=== PATIENT | female | born 1960 | race Caucasian/White ===

== ENCOUNTER 2017-05-01 00:24 | Inpatient (IN) | payer OTHER, SELFPAY ==
[2017-05-01] MEDS ORDERED: Naloxone HCl 2 mg/2 ml Syringe ONE (00:36)
[2017-05-01 00:58] LABS: #Lymphocytes 2.1 thou/uL (1.20-3.40); #Monocytes 0.4 thou/uL (0.11-0.59); #Neutrophils 3.2 thou/uL (1.40-6.50); %Basophils 0.8 % (0.0-1.0); %Eosinophils 0.8 % (0.0-10.0); %Monocytes 6.8 % (0.0-10.0); %Neutrophils 55.5 % (42.0-75.0); Hemoglobin 9.1 g/dL (12.0-16.0); Mean Corpuscular Hemoglobin 27.6 pg (27.0-31.0); Mean Corpuscular Volume 86.3 fl (81.0-99.0); Platelet Count 309 thou/uL (130-400); RBC Distribution Width 13.5 % (11.5-14.5); Red Blood Cell (RBC) Count 3.29 mill/uL (4.20-5.40); White Blood Cell (WBC) Count 5.8 thou/uL (4.8-10.8)
[2017-05-01] MEDS ORDERED: diphenhydrAMINE 50 MG/ML VIAL ONE (01:01)
[2017-05-01] MEDS ORDERED: methylPREDNISolone Sod Succ/PF 125 MG/2 ML VIAL ONE (01:01)
[2017-05-01] MEDS ORDERED: Famotidine/PF 20 mg/2ml Vial ONE (01:01)
[2017-05-01 01:12] LABS: ALT (SGPT) 14 U/L (8-55); AST (SGOT) 22 U/L (5-34); Acetaminophen Less than 6.0 mcg/mL (10.0-30.0); Albumin 3.1 g/dL (3.5-5.0); Alcohol Less than 10 mg/dL (Less than 10); Alkaline Phosphatase 105 U/L (40-150); Anion Gap 10 mmol/L (10-20); BUN (Urea Nitrogen) 13 mg/dL (9.8-20.1); Bilirubin, Total 0.4 mg/dL (0.2-1.2); CK (CPK) 295 U/L (29-168); Calc. Creatinine Clearance 0 mL/min (70-130); Calcium 8.4 mg/dL (7.8-10.44); Carbon Dioxide 28 mmol/L (22-29); Chloride 104 mmol/L (98-107); Estimated GFR-MDRD 88; Glucose 80 mg/dL (70-105); Potassium 3.9 mmol/L (3.5-5.1); Protein, Total 5.1 g/dL (6.0-8.3); Salicylate Less than 8.0 mg/dL (15.0-30.0); Sodium 138 mmol/L (136-145)
[2017-05-01 01:15] LABS: CKMB 6.2 ng/mL (0-6.6); Troponin I Less than 0.010 ng/mL (< 0.028)
[2017-05-01 01:47] LABS: Bilirubin Small (Negative); Blood, Urine Negative (Negative); Clarity CLEAR (Clear); Glucose, Urine (Dipstick) Negative (Negative); Leukocyte Trace (Negative); Nitrite Negative (Negative); Protein, Urine (Dipstick) Negative (Neg-Trace); Specific Gravity, Urine 1.017 (1.002-1.036); pH, Urine 6.5 (5.0-9.0)
[2017-05-01 01:48] LABS: Bacteria/HPF None Seen HPF (None Seen); Hyaline Casts/LPF 0-3 HYALINE CAST LPF (0-3 Hyaline); RBC/HPF 0-3 HPF (0-3); Squamous Epithelial 0-3 HPF (0-3); WBC/HPF 0-3 HPF (0-3)
[2017-05-01 02:01] LABS: Amphetamine Not Detected (NotDetected); Barbiturates Screen Not Detected (NotDetected); Benzodiazepine Screen Not Detected (NotDetected); Cocaine Metabolite Screen Not Detected (NotDetected); Medtox Control Line Valid? VALID (VALID); Medtox Reader # READER 4; Methadone Not Detected (NotDetected); Methamphetamine Not Detected (NotDetected); Opiate Screen Not Detected (NotDetected); Oxycodone Screen Not Detected (NotDetected); Phencyclidine (PCP) Not Detected (NotDetected); THC/Cannabinoid Screen Not Detected (NotDetected); Tricyclic Screen Detected (NotDetected)
[2017-05-01 04:48] VITALS: BMI 21.2
[2017-05-01] MEDS ORDERED: Sodium Chloride 0.9% 1,000 ML IV SCH (05:00)
[2017-05-01 07:52] VITALS: BP 90/51; TEMP 98.3
--- NOTE | 2017-05-01 08:23 | CT ---
PRELIMINARY REPORT/[facility]/EMERGENCY AFTER HOURS PROCEDURE: EXAM: CT Head Without Intravenous Contrast EXAM DATE/TIME: 05/01/2017 1:52 AM CLINICAL HISTORY: 56 years old, female; Signs and symptoms; Coma or unconsciousness; Patient HX: Additional history obt ained from ems, 56 y/o f with presentation of possible od. Ems reports that they were called by a fri end for a "woman with no stomach". Friend reported that she talked to the pt x30 minutes prior to ems arrival. Pt was unresponsive upon ems arrival and upon arousal pt admitted to taking benadryl, amoun t ingested unknown. O2 96%ra and became 100% 2l. BP 86/48, dstick 91. TECHNIQUE: Axial computed tomography images of the head/brain without intravenous contrast. All CT scans at this facility use one or more dose reduction techniques, viz.: automated exposure control; ma/kV adjustme nt per patient size (including targeted exams where dose is matched to indication; i.e. head); or ite rative reconstruction technique. COMPARISON: No relevant prior studies available. FINDINGS: Brain: No evidence of acute intracranial hemorrhage, extraxial fluid or midline shift. No evidence of acute large vessel infarction. Ventricles: Unremarkable. No ventriculomegaly. Bones/joints: Unremarkable. No acute fracture. Soft tissues: Unremarkable. Sinuses: Unremarkable as visualized. No acute sinusitis. Mastoid air cells: Unremarkable as visualized. No mastoid effusion. IMPRESSION: 1. No evidence of acute intracranial hemorrhage, extraxial fluid or midline shift. 2. No evidence of acute large vessel infarction. Thank you for allowing us to participate in the care of your patient. Dictated and Authenticated by: Chance Beckham MD 05/01/2017 2:59 AM Central Time ([place] & [place]) FINAL REPORT BRAIN CT WITHOUT IV CONTRAST: EMERGENCY AFTER HOURS EXAM TIME: 1:53 a.m. DATE: 05/01/17. COMPARISON: 10/20/15. No significant acute process. No mass or bleed. Stable from prior study. POS: [facility]
--- NOTE | 2017-05-01 08:26 | CT ---
PRELIMINARY REPORT/[facility]/EMERGENCY AFTER HOURS PROCEDURE: EXAM: CT Abdomen and Pelvis With Intravenous Contrast EXAM DATE/TIME: 05/01/2017 1:59 AM CLINICAL HISTORY: 56 years old, female; Signs and symptoms; Nausea and vomiting; Patient HX: Additional history obtaine d from ems, 56 y/o f with presentation of possible od. Ems reports that they were called by a friend for a "woman with no stomach". Friend reported that she talked to the pt x30 minutes prior to ems arr ival. Pt was unresponsive upon ems arrival and upon arousal pt admitted to taking benadryl, amount in gested unknown. O2 96%ra and became 100% 2l. BP 86/48, dstick 91. TECHNIQUE: Axial computed tomography images of the abdomen and pelvis with intravenous contrast. All CT scans at this facility use one or more dose reduction techniques, viz.: automated exposure control; ma/kV adjustment per patient size (including targeted exams where dose is matched to indication; i.e. head); or iterative reconstruction technique. Coronal reformatted images were created and reviewed. CONTRAST: 100 mL of ISOVUE 370 administered intravenously. COMPARISON: No relevant prior studies available. FINDINGS: Lower thorax: Moderate up to 10 mm distal esophageal wall thickening. Sutures at distal esophagus. Elmore rgical sutures are present along the stomach and proximal small bowel suggests prior gastric bypass s urgery with mild dilatation of the distal esophagus-gastroesophageal junction. ABDOMEN: Liver: Few hepatic cysts. Gallbladder and bile ducts: Gallbladder absent, surgical clips present in the fossa; prominence of th e central intrahepatic and extrahepatic common bile ducts, CBD 11 mm. Pancreas: Unremarkable. No mass. No ductal dilation. Spleen: Unremarkable. No splenomegaly. Adrenals: Unremarkable. No mass. Kidneys and ureters: Small 1 cm right renal cyst. No hydronephrosis. Stomach and bowel: Moderate-large amount retained stool material throughout areas nondilated colon. N o mucosal thickening. Appendix: No findings to suggest acute appendicitis. PELVIS: Bladder: Jackson catheter coiled within empty bladder. Reproductive: Uterus appears within normal limits. ABDOMEN and PELVIS: Intraperitoneal space: Unremarkable. No free air. No significant fluid collection. Bones/joints: Chronic degenerative changes of the lumbar spine. No acute fracture. No dislocation. Soft tissues: Unremarkable. Vasculature: Chronic atherosclerotic calcification of the vasculature. No abdominal aortic aneurysm. Lymph nodes: Unremarkable. No enlarged lymph nodes. IMPRESSION: 1. Moderate up to 10 mm distal esophageal wall thickening. --Possible mild esophagitis. 2. Cholecystectomy; prominence of the central intrahepatic and extrahepatic common bile ducts. Findi ngs can be seen in post-cholecystomy patients. Please correlate with patients liver function tests to exclude underlying biliary obstruction. 3. Moderate-large amount retained stool material throughout areas nondilated colon. Findings suggest some degree of constipation. Clinical correlation is recommended. Thank you for allowing us to participate in the care of your patient. Dictated and Authenticated by: Chance Beckham MD 05/01/2017 3:19 AM Central Time ([place] & [place]) FINAL REPORT ABDOMEN AND PELVIC CT SCAN WITH IV CONTRAST: EMERGENCY AFTER HOURS EXAM TIME: 2:05 a.m. DATE: 05/01/17. COMPARISON: 10/20/15. FINDINGS: Moderate to marked distal esophageal wall thickening with some associated hiatal hernia and postopera tive changes at the stomach, possibly prior bypass-type surgery. The amount of thickening of the eso phagus certainly has increased from the prior study. Status post cholecystectomy with marked ductal dilatation, both common bile duct and intrahepatic ductal dilatation. Stable liver cyst. Fairly ext ensive solid fecal material throughout the colon, evidence for constipation. No CT evidence for acut e appendicitis. No renal calculus or obstruction. Small right renal cyst. POS: [facility]
--- NOTE | 2017-05-01 08:36 | HP ---
CHIEF COMPLAINT: Unresponsiveness. HISTORY OF PRESENT ILLNESS: A 57-year-old female with a known history of short gut syndrome, pulmona ry embolus, who presents after being found unresponsive by her friend. It appears that just half an hour prior to this she was just conversing with the friend and was at her baseline mental status. At the time of my evaluation, the patient is arousable, but does not want to answer very many questions for me. In the emergency department, upon initial arrival, patient was found to have stable vital signs and G CS of 9. Per history obtained from the patient's friend at that point in time, it appears that the p atient had taken her regular home medications with the addition of Benadryl to help with sleeping. At the time of my evaluation, the patient is refusing to answer any questions and wishes to go back t o sleep. It appears that earlier she had told several nurses that she had taken her home medications of Benadryl and "I don't know why I'm here." REVIEW OF SYSTEMS: Unable to obtain secondary to the above. PAST MEDICAL HISTORY: 1. Gastric bypass, status post Mathew-en-Y. 2. Prior history of peritonitis and sepsis status post abdominal surgery. 3. Status post appendectomy. 4. Status post cholecystectomy. 5. 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 6. Status post G-tube placement and removal. 7. Status post bowel resection. HOME MEDICATIONS: Her home medication list is unable to be clarified with her. At this point in amie becerril, the list in the EMR appears to be from her prior discharge and then includes that she was still on Xarelto and does not include any updates. Attempts are being made to contact the patient's home pha rmacy to verify all of her medications at their current doses. ALLERGIES: IMIPRAMINE, IV DYE, and SULFA ANTIBIOTICS. PHYSICAL EXAMINATION: VITAL SIGNS: Temperature of 97.3, pulse of 78, respirations 16, satting 100% on 2 liters nasal cannu la, blood pressure of 119/76. GENERAL: Thin appearing lady who is in no acute distress, lying in the hospital bed. HEENT: Slightly dry mucous membranes. Equal ocular motions are intact. Normocephalic and atraumati c. CARDIOVASCULAR: S1, S2. Pulses 2+ bilateral upper extremities. No murmurs, rubs or gallops. No pi tting pedal edema. RESPIRATORY: Limited anterior examination secondary to patient's request, reasonable air movement ot herwise. No wheezes, rales or rhonchi otherwise. LUNGS: Clear to auscultation. ABDOMEN: Positive bowel sounds, soft, nontender to palpation. MUSCULOSKELETAL: Thin. Spontaneously moves all 4 extremities. ASSESSMENT AND PLAN: 1. A 56-year-old female presenting with a decreased mentation sensation secondary to Benadryl ingest ion. We will closely monitor as the patient appears to be arousable and with stable vital signs when she is stable. I suspect that perhaps the patient had taken more Benadryl and then she was able to tolerate. We will have to clarify with the patient when able. 2. History of gastric bypass and malnutrition. The patient had indicated to one of the techs that s he had not eaten in 6 days and had not had a bowel movement in 10 days. We will closely monitor her GI status as well. 3. Vaughn's thyroiditis. Check TSH. Continue patient on her home regimen once it is clarified. 4. Diet: N.p.o. with decreased mental status, but once her mental status resumes to baseline, resum e diet as tolerated by the patient. Activity; consult a walking program out of bed as tolerated, but at least to a chair. 5. Deep venous thrombosis prophylaxis. If the patient is not currently still on Xarelto, then we wi ll initiate deep venous thrombosis prophylaxis with subcutaneous Lovenox. The patient is presumed to be a FULL CODE as she is unable to maintain a conversation long enough to discuss code status. Thank you for asking me to care for the patient. Questions or concerns, please contact me at [facility].
[2017-05-01] MEDS ORDERED: FLU VACC QS2017-18 36 mo. & older 0.5 ML SYRINGE IM ONE (09:00)
[2017-05-01] MEDS ORDERED: Enoxaparin Sodium 30 MG/0.3 ML SYRINGE SC SCH (09:00)
--- NOTE | 2017-05-01 09:16 | RAD ---
CHEST 1 VIEW: HISTORY: A 56-year-old female with a history of possible overdose. The patient became unresponsive. COMPARISON: 10/20/15. FINDINGS: Monitor leads overlie the chest. There is some rotation to the right. No confluent pneumonia, overt edema, or pleural effusion. IMPRESSION: No acute intrathoracic disease. POS: [facility]
[2017-05-01] MEDS ORDERED: ISOVUE-370 76%-LOCM 1 ML ONE (13:52)
--- NOTE | 2017-05-01 15:11 | DIS ---
DATE OF ADMISSION: 05/01/2017 DATE OF DISCHARGE: 05/01/2017 DISCHARGE DIAGNOSES: 1. Sedation secondary to home medications. 2. History of anxiety disorder. 3. History of pulmonary embolism. 4. Moderate protein-calorie malnutrition. 5. History of gastric bypass. CONSULTATIONS: None. PROCEDURES PERFORMED: None. HISTORY AND PHYSICAL: Ms. Bond is a 56-year-old female who took her normal home medications and w ent to bed. She was difficult to be aroused by her sister who was concerned and called EMS. She was brought to the Emergency Department where she was again difficult to be aroused. She was placed in observation by the client business manager. HOSPITAL COURSE: The patient was seen and examined by Dr. Lizarraga and placed on observation. The patie nt was admitted at around 03:50. At 08:50, the patient woke up, was extremely upset that she was in the hospital and was yelling at th e nurses that she was going to be going and would go against medical advice if necessary. I was call ed by the nurses to come by and see her. Plans were to discharge as she was awake, which she was. S he was discharged home in stable condition. PHYSICAL EXAMINATION: The patient was seen and examined on the day of discharge. Discharge plan and disposition was discussed with the patient [id number] at the bedside. DISCHARGE MEDICATIONS: She takes Neurontin, amitriptyline and clonazepam at bedtime every night. Adelita becerril is unsure of the rest of her medicines and doses. FOLLOWUP APPOINTMENTS: Primary care physician within a week. DISCHARGE CONDITION: Stable. DISPOSITION: She will be discharged home via private vehicle. DISCHARGE ACTIVITY: As tolerated. DISCHARGE DIET: Bariatric diet, but patient certainly needs to increase her calorie intake with [facility] protein shakes or nutritional supplements.
== END 2017-05-01 09:40 | disposition home or self-care (01) | DRG 918 ==
LOC: ERS 00:24 → IMCU/EMU 02:42 → ERS 04:25
PROVIDERS: ADMIT Internal Medicine; ATTEND Internal Medicine
DX: T45.0X1A Poisoning by antiallergic and antiemetic drugs, accidental (unintentional), initial encounter (principal); K91.2 Postsurgical malabsorption, not elsewhere classified; E44.0 Moderate protein-calorie malnutrition; I95.9 Hypotension, unspecified; Z86.711 Personal history of pulmonary embolism; Z98.84 Bariatric surgery status; Z79.01 Long term (current) use of anticoagulants; Z88.2 Allergy status to sulfonamides; Z88.8 Allergy status to other drugs, medicaments and biological substances; Z91.041 Radiographic dye allergy status; E06.3 Autoimmune thyroiditis; F41.9 Anxiety disorder, unspecified; Z68.21 Body mass index [BMI] 21.0-21.9, adult; F17.210 Nicotine dependence, cigarettes, uncomplicated
CPT/HCPCS: 36416; 51702; 70450; 71045; 74177; 80053; 80306; 80307; 81003; 81015; 82140; 82553; 83605; 83690; 84443; 84484; 85025; 86140; 87040; 87086; 93005; 96361; 96374; 96375; J1200; J2310; J2930; S0028